=== PATIENT | female | born 1985 | race Caucasian/White ===

== ENCOUNTER → 2016-11-22 | Outpatient (CLI) | payer OTHER ==
[~2016-11-22] MED LIST: IBUP-103 PO
[2016-11-22 15:47] LABS: URINE APPEARANCE CLEAR (CLEAR); URINE BILIRUBIN NEG (NEG); URINE COLOR YELLOW; URINE NITRITE NEG (NEG); URINE PH 6.5 (4.5-7.5); URINE SPECIFIC GRAVITY 1.009 (1.000-1.030); UROBILINOGEN NEG (NEG)
[2016-11-22 15:54] LABS: MANUAL MICROSCOPIC REQUIRED? NO; REVIEW REQ? NO
== END | disposition home or self-care (01) ==
LOC: C.LAB 14:31
PROVIDERS: ATTEND Obstetrics & Gynecology
DX: R39.9 Unspecified symptoms and signs involving the genitourinary system (principal)

== ENCOUNTER 2017-08-12 10:03 | Emergency (ER) | payer OTHER ==
[~2017-08-12] VITALS: Ht 162.6 cm; Wt 82.5 kg
[2017-08-12 10:05] VITALS: TEMP 38.1; Ht 162.6 cm; Wt 82.5 kg
--- NOTE | 2017-08-12 10:54 | EMERGENCY ROOM VISIT NOTE ---
History First contact with patient: 10:19 Chief Complaint: FLU LIKE SX Stated Complaint: FLU LIKE SYMPTOMS History of Present Illness The patient is a 32 year old female who presents to the Emergency Room with complaints fever starting yesterday. She notes that yesterday she took her temperature and it was 100.8. This has been associated with muscles ache, joint ache, chills, sore throat, ear pressure, sinus pressure and dry cough She notes that her son was sick last week. She denies any chest pain, shortness of breath, runny nose, palpitations, nausea , vomiting, diarrhea or abdominal pain. She also denies any recent tick bites or rashes. Review of Systems CONSTITUTIONAL:has had chills No fever, sweats or night sweats. No recent infections. No weight loss or weight gain. NEUROLOGIC: No headaches, dizziness or syncopal episodes. HEENT: No hearing or visual changes. No sinus or nasal issues. No mouth sores, thrush or oral lesions. CARDIOVASCULAR: No chest pain or palpitations. RESPIRATORY: No SOB, dyspnea, has had cough GASTROINTESTINAL: No nausea, vomiting, diarrhea, constipation, reflux, melena or hematochezia. GENITOURINARY: No dysuria, frequency, urgency,or hematuria. MUSCULOSKELETAL: generalized muscle aches and pain SKIN: No rashes or skin lesions. No hair loss or nail changes. Past Medical/Surgical History Medical Problems: (1) 22 weeks gestation of (2) Acute right flank pain (3) Pyelonephritis complicating in second trimester Social History Smoking Status: Never Smoker Alcohol Use: occasionally Drug Use: none Housing Status: lives with family Current/Historical Medications No Active Prescriptions or Reported Meds Allergies NKDA Physical Exam Vital Signs Date Time Temp Pulse Resp B/P (MAP) Pulse Ox O2 Delivery O2 Flow Rate FiO2 08/12/17 11:33 88 14 110/72 97 Room Air 08/12/17 10:47 105 16 113/72 97 Room Air 08/12/17 10:05 38.1 106 18 120/75 97 Room Air Physical Exam HEENT: Head - normocephalic and atraumatic. Pupils are equal, round, and reactive to light. Extraocular eye muscles are intact and sclera are anicteric. Ears - bilaterally patent canals with noninjected tympanic membranes and no evidence of hemotympanum. Nose - moist nasal mucosa without discharge. Mouth - moist buccal mucosa. Oropharynx is erythematous but there is no tonsillar exudate or edema noted. Neck: Supple; no JVD, nuchal rigidity, mild submandibular lymphadenopathy Heart: Regular rate and rhythm. There is a normal S1 and S2 with no murmurs, clicks, or gallops appreciated. Lungs: Clear to auscultation bilaterally with no wheezes, rales, or rhonchi. Abdomen: Soft, completely nontender, nondistended, with good bowel sounds. There are no palpable pulsatile masses or hepatosplenomegaly. There is no guarding, rigidity, or rebound noted. Extremities: No evidence of cyanosis, clubbing, or edema. There are easily palpable peripheral pulses. Medical Decision & Procedures Laboratory Results Test 08/12/17 10:47 Influenza Type A (RT-PCR) Neg for Influ A (NEG) Influenza Type B (RT-PCR) Neg for Influ B (NEG) ED Course 1010- patient was seen by myself and a full history and examination were performed 1030 - i discussed the case with Dr. Kan and I ordered rapid flu, rapid strep and a CXR 1150 - the results of the testing returned as normal and the patient was comfortable and in no acute distress 1155 - continued management was discussed with the patient and she was agreeable to following up with her PCP Medical Decision Differential diagnosis: Etiologies such as viral syndrome, tonsillitis, streptococcal pharyngitis, mononucleosis, peritonsillar abscess, retropharyngeal abscess, otitis, pneumonia , influenza, as well as others were entertained. Patient had a rapid flu, rapid strep and CXR which all returned as normal. The patient is likely to be suffering from a viral URI. Impression Primary Impression: Upper respiratory infection Departure Information Dispostion Home / Self-Care Condition GOOD Prescriptions No Active Prescriptions or Reported Meds Referrals Mel Barrios D.O. (PCP) Patient Instructions My [facility] Additional Instructions We tested you for strep throat and for the flu. Both of these results were normal. We also did a CXR which was normal. Please follow up with your PCP in the next 2-3 days. If you have any shortness of breath, chest pain, or vomiting then please come back to the emergency department Problem Qualifiers Primary Impression: Upper respiratory infection URI type: unspecified viral URI Qualified Codes: J06.9 - Acute upper respiratory infection, unspecified
--- NOTE | 2017-08-12 11:27 | DIAGNOSTIC IMAGING REPORT ---
CHEST 2 VIEWS ROUTINE CLINICAL HISTORY: Cough FLULIKE SYMPTOMS COMPARISON STUDY: 07/06/2016 FINDINGS: The cardiac and mediastinal contours are normal. There is no evidence of focal pulmonary consolidation. There is no evidence of failure. No pleural effusions are visualized.[ There is a mild scoliosis. IMPRESSION: No active disease in the chest. Electronically signed by: Christoph Jaquez M.D. 08/12/2017 11:26 AM Dictated Date/Time: 08/12/2017 11:25 AM
[2017-08-12 11:45] LABS: INFLUENZA A PCR Neg for Influ A (NEG); INFLUENZA B PCR Neg for Influ B (NEG)
[2017-08-12 12:31] VITALS: BP 112/78; PULSE 91; O2SAT 99
--- NOTE | 2017-08-12 13:59 | EMERGENCY ROOM VISIT NOTE ---
History Report prepared by Pat: Joseph Quiroz Under the Supervision of: Dr. Christophe Kan D.O. First contact with patient: 10:19 Chief Complaint: FLU LIKE SX Stated Complaint: FLU LIKE SYMPTOMS History of Present Illness The patient is a 32 year old female who presents to the Emergency Room with complaints of constant flu like symptoms beginning a few days ago. The patient states her symptoms began with a cough a few days ago. She reports she developed an achy feeling and sorethroat yesterday morning. The patient notes last evening she developed a headache. She states this morning her symptoms worsened when her headache continued, and she developed a fever and left ear pressure. The patient reports her son was sick with a fever and URI symptoms. She notes she is currently on her menstrual period. The patient states she can swallow but it is sore. She denies abdominal pain, nausea, vomiting, diarrhea. Source of History: patient Onset: a few days ago Position: other (global) Quality: other (flu like symptoms) Timing: constant Associated Symptoms: + fevers, + headache (last evening), + sorethroat ( yesterday morning), + cough (few days ago), No nausea, No vomiting, No abdominal pain, No diarrhea Note: Associated symptoms: achy feeling, left ear pressure Review of Systems See HPI for pertinent positives & negatives. A total of 10 systems reviewed and were otherwise negative. Past Medical & Surgical Medical Problems: (1) 22 weeks gestation of (2) Acute right flank pain (3) Pyelonephritis complicating in second trimester Family History Cancer Diabetes mellitus Hypertension Kidney disease Kidney stones Social History Smoking Status: Never Smoker Smokeless Tobacco Use: No Alcohol Use: none Marital Status: Housing Status: lives with family Occupation Status: employed Current/Historical Medications No Active Prescriptions or Reported Meds Allergies Coded Allergies: No Known Allergies (Unverified , 08/12/17) Physical Exam Vital Signs Date Time Temp Pulse Resp B/P (MAP) Pulse Ox O2 Delivery O2 Flow Rate FiO2 08/12/17 12:31 91 18 112/78 99 08/12/17 11:33 88 14 110/72 97 Room Air 08/12/17 10:47 105 16 113/72 97 Room Air 08/12/17 10:05 38.1 106 18 120/75 97 Room Air Physical Exam GENERAL: Sitting up in bed, alert, dry non-productive cough, no distress, non- toxic EYE EXAM: normal conjunctiva. OROPHARYNX: no exudate, no erythema, lips, buccal mucosa, and tongue normal and mucous membranes are moist NECK: supple, no nuchal rigidity, no adenopathy, non-tender LUNGS: Clear to auscultation. Normal chest wall mechanics HEART: no murmurs, S1 normal and S2 normal ABDOMEN: abdomen soft, non-tender, normo-active bowel sounds, no masses, no rebound or guarding. BACK: Back is symmetrical on inspection and there is no deformity, no midline tenderness, no CVA tenderness. SKIN: no rashes and no bruising UPPER EXTREMITIES: upper extremities are grossly normal. LOWER EXTREMITIES: No pitting edema. Calves are equal bilaterally. NEURO EXAM: Normal sensorium, cranial nerves II-XII grossly intact, normal speech, no gross weakness of arms, no gross weakness of legs. Medical Decision & Procedures ER Provider Diagnostic Interpretation: Radiology results as stated below per my review and the radiologist's interpretation: CHEST 2 VIEWS ROUTINE CLINICAL HISTORY: Cough FLULIKE SYMPTOMS COMPARISON STUDY: 07/06/2016 FINDINGS: The cardiac and mediastinal contours are normal. There is no evidence of focal pulmonary consolidation. There is no evidence of failure. No pleural effusions are visualized.[ There is a mild scoliosis. IMPRESSION: No active disease in the chest. Electronically signed by: Christoph Jaquez M.D. 08/12/2017 11:26 AM Dictated Date/Time: 08/12/2017 11:25 AM Laboratory Results Test 08/12/17 10:47 Influenza Type A (RT-PCR) Neg for Influ A (NEG) Influenza Type B (RT-PCR) Neg for Influ B (NEG) Laboratory results per my review. ED Course ED COURSE: Vital signs were reviewed and showed normal vitals. The patients medical record was reviewed The above diagnostic studies were performed and reviewed. ED treatments and interventions as stated above. 1023: The patient was evaluated in room C04 by the resident under my supervision. A complete history and physical examination was performed. 1055: The patient was evaluated in room C04 by me. A complete history and physical examination was performed. 1208: Upon reevaluation, the patient is resting comfortably. I discussed my findings with the patient and she understands and agrees with the treatment plan. Based on the patients age, coexisting illnesses, exam and lab findings the decision to treat as an outpatient was made. The patient remained stable while under my care. The patient appeared well at the time of discharge. Medical Decision Differential diagnoses includes but is not limited to pneumonia, bronchitis, COPD/Asthma exacerbation, pneumothorax, pulmonary embolism, congestive heart failure, acute coronary syndrome. Patient is a 32-year-old female who presents to ER for sore throat, dry cough, and achy since yesterday. Son has been sick with same symptoms. No nuchal rigidity. No signs meningitis or encephalitis. Influenza and rapid strep were negative. Chest x-ray unremarkable. Patient was updated bedside. She is discharged follow-up with PCP as an outpatient as she likely has a viral URI. Discussed with Pt concerning signs and symptoms to watch out for. Pt was instructed to follow up with their PCP and discussed with the patient their option to return to the ED at anytime for persistent or worsening symptoms. The appropriate anticipatory guidance and out-patient management, including indications for return to the emergency department, were explained at length to the patient and understood. Medication Reconcilliation Current Medication List: was personally reviewed by me Blood Pressure Screening Patient's blood pressure: Normal blood pressure Blood pressure disposition: Did not require urgent referral Impression Primary Impression: Upper respiratory infection Scribe Attestation The scribe's documentation has been prepared under my direction and personally reviewed by me in its entirety. I confirm that the note above accurately reflects all work, treatment, procedures, and medical decision making performed by me. Departure Information Dispostion Home / Self-Care Prescriptions No Active Prescriptions or Reported Meds Referrals Mel Barrios D.O. (PCP) Forms HOME CARE DOCUMENTATION FORM, IMPORTANT VISIT INFORMATION Patient Instructions My [facility] Additional Instructions We tested you for strep throat and for the flu. Both of these results were normal. We also did a CXR which was normal. Please follow up with your PCP in the next 2-3 days. If you have any shortness of breath, chest pain, or vomiting then please come back to the emergency department Problem Qualifiers Primary Impression: Upper respiratory infection URI type: unspecified viral URI Qualified Codes: J06.9 - Acute upper respiratory infection, unspecified
== END 2017-08-12 12:23 | disposition home or self-care (01) ==
LOC: C.EDB 10:05 → C.EDC 12:23
DX: J06.9 Acute upper respiratory infection, unspecified (principal)

== ENCOUNTER → 2017-10-24 | Outpatient (CLI) | payer OTHER | END | disposition home or self-care (01) | LOC: C.LABSPEC 11:05 | PROVIDERS: ATTEND Obstetrics & Gynecology | DX: Z34.81 Encounter for supervision of other normal pregnancy, first trimester (principal) ==

== ENCOUNTER → 2017-10-31 | Outpatient (CLI) | payer OTHER | END | disposition home or self-care (01) | LOC: C.LABSPEC 10:55 | PROVIDERS: ATTEND Obstetrics & Gynecology | DX: Z34.81 Encounter for supervision of other normal pregnancy, first trimester (principal) ==

== ENCOUNTER → 2017-10-31 | Outpatient (CLI) | payer OTHER | END | disposition home or self-care (01) | LOC: C.PAPS 11:35 | PROVIDERS: ATTEND Obstetrics & Gynecology | DX: Z12.4 Encounter for screening for malignant neoplasm of cervix (principal); R87.610 Atypical squamous cells of undetermined significance on cytologic smear of cervix (ASC-US) ==

== ENCOUNTER → 2017-10-31 | Outpatient (CLI) | payer OTHER ==
[2017-10-31 14:43] LABS: BASO % 0.2 %; BASO ABS # 0.02 K/uL (0-0.2); EOS % 1.3 %; EOS ABS # 0.12 K/uL (0-0.5); HEMATOCRIT 41.6 % (37-47); HEMOGLOBIN 14.6 g/dL (12.0-16.0); IG# 0.01 K/uL (0.00-0.02); LYMPH % 22.2 %; LYMPH ABS # 2.03 K/uL (1.2-3.4); MEAN CORPUSCULAR HEMOGLOBIN 31.6 pg (25-34); MEAN CORPUSCULAR HGB CONC 35.1 g/dl (32-36); MEAN PLATELET VOLUME 10.7 fL (7.4-10.4); MONO % 6.2 %; MONO ABS # 0.57 K/uL (0.11-0.59); PLATELET COUNT 245 K/uL (130-400); RED CELL DISTRIBUTION WIDTH CV 12.8 % (11.5-14.5); WHITE BLOOD COUNT 9.15 K/uL (4.8-10.8)
== END | disposition home or self-care (01) ==
LOC: C.LAB 13:30
PROVIDERS: ATTEND Obstetrics & Gynecology
DX: Z34.81 Encounter for supervision of other normal pregnancy, first trimester (principal)

== ENCOUNTER → 2017-12-14 | Outpatient (CLI) | payer OTHER ==
[~2017-12-14] MED LIST changes: -IBUP-103 PO; +ONDA4TAB10 SL; +PRENTAB26 PO
== END | disposition home or self-care (01) ==
LOC: C.LAB 08:05
PROVIDERS: ATTEND Family Medicine Adult Medicine
DX: Z00.00 Encounter for general adult medical examination without abnormal findings (principal); L80 Vitiligo

== ENCOUNTER 2017-12-15 06:17 | Emergency (ER) | payer OTHER ==
[~2017-12-15] VITALS: Ht 162.6 cm; Wt 77.0 kg
[2017-12-15 06:20] VITALS: TEMP 36.7; O2SAT 99; Ht 162.6 cm; Wt 77.0 kg
[2017-12-15] MEDS ORDERED: DiphenhydrAMINE HCL 50 MG/ML VIAL IV STA (06:30)
[2017-12-15] MEDS ORDERED: METOCLOPRAMIDE HCL INJ 5 MG/ML 2 ML VIAL IV STA (06:30)
[2017-12-15] MEDS ORDERED: SODIUM CHLORIDE 0.9% 1000ML 1,000 ML IV STA (06:30)
[2017-12-15] MEDS ORDERED: PRENTAB26 PO (06:38)
--- NOTE | 2017-12-15 06:40 | EMERGENCY ROOM VISIT NOTE ---
History First contact with patient: 06:24 Chief Complaint: DIZZY Stated Complaint: DIZZY,LIGHT HEADED,14 WEEKS PREG Nursing Triage Summary: Pt states upon waking this morning she felt hot, turned fan on and felt better. Pt states she has Hx of hypoglycemia, drank orange juice, vomited x1 but felt better. Upon arriving to work pt states she felt dizzy and lightheaded, coworker states "she looked like she was going to pass out". Pt denies LOC. Pt states she currently feels better while lying down. History of Present Illness The patient is a 32 year old female who presents to the Emergency Room with complaints of dizziness. The patient is 14 weeks . The patient states that she had vomited once earlier this morning. When she arrived at work, she felt dizzy and her colleagues felt she looked like she might pass out. She was brought to the ED. Upon arrival, she began vomiting. The patient has no complaints of pain. There has been no fever, no chills. No diarrhea. She states she is recovering from a cold, basically a stuffy nose and mild cough. There have been no urinary complaints. No vaginal bleeding or discharge. The has been healthy thus far, she has had some nausea and vomiting in the first trimester. The patient denies any sick contacts, no food eaten that she feels may have been an issue. She feels better now since throwing up. Patient denies any chest pain or shortness of breath, no palpitations. Source of History: patient Onset: this morning Position: other (global) Quality: other (dizzy) Timing: other (sudden) Associated Symptoms: + cough (mild), + vomiting, No fevers, No chills, No chest pain, No SOB, No diarrhea, No urinary symptoms Note: The patient complains of a stuffy nose. The patient denies complaints of pain, vaginal bleeding, vaginal discharge, heart palpitations, contact with anyone who is sick, and eating any food that may have been an issue. Review of Systems ROS: Please see HPI. At least 10 systems in total were reviewed and otherwise negative. Past Medical/Surgical History Medical Problems: (1) 22 weeks gestation of (2) Acute right flank pain (3) Pyelonephritis complicating in second trimester Family History Cancer Diabetes mellitus Hypertension Kidney disease Kidney stones Social History Smoking Status: Never Smoker Alcohol Use: none Drug Use: none Marital Status: Housing Status: lives with family Occupation Status: employed Current/Historical Medications Scheduled Multivit/Min/Iron/Fol Ac/Pren ( Vitamin), 1 TAB PO HS Ondasetron Odt (Zofran Odt), 4 MG SL Q6H Physical Exam Vital Signs Date Time Temp Pulse Resp B/P (MAP) Pulse Ox O2 Delivery O2 Flow Rate FiO2 12/15/17 08:15 74 16 99/77 12/15/17 06:36 83 12/15/17 06:36 76 18 120/83 Room Air 12/15/17 06:20 36.7 76 18 106/75 99 Room Air Physical Exam GENERAL: Patient is actively vomiting in the bathroom. HEENT: No acute trauma, normocephalic atraumatic, mucous membranes moist, no nasal congestion, no scleral icterus. NECK: No stridor, no adenopathy, no meningismus, trachea is midline. LUNGS: Clear to auscultation bilaterally, no wheeze, no rhonchi, breath sounds equal. HEART: Without murmurs gallops or rubs, regular rate and rhythm. ABDOMEN: Soft, nontender, bowel sounds positive, no hernias, no peritonitis. Gravid uterus EXTREMITIES: No cyanosis or edema, full range of motion of all the joints without pain or difficulty, no signs for acute trauma. NEUROLOGIC: Oriented x 3, no acute motor or sensory deficits, no focal weakness. SKIN: No rash, no jaundice, no diaphoresis. Medical Decision & Procedures Laboratory Results 12/15/17 07:12 Red Blood Count 4.10, Mean Corpuscular Volume 89.0, Mean Corpuscular Hemoglobin 31.2, Mean Corpuscular Hemoglobin Concent 35.1, Mean Platelet Volume 10.2, Neutrophils (%) (Auto) 67.9, Lymphocytes (%) (Auto) 20.3, Monocytes (%) (Auto) 10.2, Eosinophils (%) (Auto) 1.2, Basophils (%) (Auto) 0.3, Neutrophils # (Auto ) 4.72, Lymphocytes # (Auto) 1.41, Monocytes # (Auto) 0.71, Eosinophils # (Auto ) 0.08, Basophils # (Auto) 0.02 12/15/17 07:12 Test 12/15/17 07:12 12/15/17 08:05 White Blood Count 6.95 K/uL (4.8-10.8) Red Blood Count 4.10 M/uL (4.2-5.4) Hemoglobin 12.8 g/dL (12.0-16.0) Hematocrit 36.5 % (37-47) Mean Corpuscular Volume 89.0 fL (80-100) Mean Corpuscular Hemoglobin 31.2 pg (25-34) Mean Corpuscular Hemoglobin Concent 35.1 g/dl (32-36) Platelet Count 178 K/uL (130-400) Mean Platelet Volume 10.2 fL (7.4-10.4) Neutrophils (%) (Auto) 67.9 % Lymphocytes (%) (Auto) 20.3 % Monocytes (%) (Auto) 10.2 % Eosinophils (%) (Auto) 1.2 % Basophils (%) (Auto) 0.3 % Neutrophils # (Auto) 4.72 K/uL (1.4-6.5) Lymphocytes # (Auto) 1.41 K/uL (1.2-3.4) Monocytes # (Auto) 0.71 K/uL (0.11-0.59) Eosinophils # (Auto) 0.08 K/uL (0-0.5) Basophils # (Auto) 0.02 K/uL (0-0.2) RDW Standard Deviation 40.3 fL (36.4-46.3) RDW Coefficient of Variation 12.5 % (11.5-14.5) Immature Granulocyte % (Auto) 0.1 % Immature Granulocyte # (Auto) 0.01 K/uL (0.00-0.02) Anion Gap 7.0 mmol/L (3-11) Est Creatinine Clear Calc Drug Dose 155.9 ml/min Estimated GFR () 147.7 Estimated GFR (Non- 127.4 BUN/Creatinine Ratio 10.3 (10-20) Calcium Level 8.3 mg/dl (8.5-10.1) Total Bilirubin 0.3 mg/dl (0.2-1) Aspartate Amino Transf (AST/SGOT) 12 U/L (15-37) Alanine Aminotransferase (ALT/SGPT) 16 U/L (12-78) Alkaline Phosphatase 51 U/L (45-117) Total Protein 6.8 gm/dl (6.4-8.2) Albumin 3.3 gm/dl (3.4-5.0) Globulin 3.5 gm/dl (2.5-4.0) Albumin/Globulin Ratio 0.9 (0.9-2) Urine Color YELLOW Urine Appearance CLEAR (CLEAR) Urine pH 7.0 (4.5-7.5) Urine Specific [place] 1.016 (1.000-1.030) Urine Protein NEG (NEG) Urine Glucose (UA) NEG (NEG) Urine Ketones 1+ (NEG) Urine Occult Blood NEG (NEG) Urine Nitrite NEG (NEG) Urine Bilirubin NEG (NEG) Urine Urobilinogen NEG (NEG) Urine Leukocyte Esterase NEG (NEG) Laboratory results reviewed by me. Medications Administered Medications (Trade) Dose Ordered Sig/Landon Route Start Time Stop Time Status Last Admin Dose Admin Sodium Chloride 1,000 ml @ 999 mls/hr Q1H1M STAT IV 12/15/17 06:30 12/15/17 07:30 DC 12/15/17 06:50 999 MLS/HR Metoclopramide HCl (Reglan Inj) 5 mg NOW STAT IV 12/15/17 06:30 12/15/17 06:34 DC 12/15/17 06:50 5 MG Diphenhydramine HCl (Benadryl Inj) 25 mg NOW STAT IV 12/15/17 06:30 12/15/17 06:34 DC 12/15/17 06:50 25 MG ED Course 0624: The patient was evaluated in room A2. A complete history and physical exam was performed. 0630: Ordered Benadryl Inj 25 mg IV, Reglan Inj 5 mg IV, NSS 1000 ml @ 999 mls/ hr IV. 0824: The patient's urine has come back. The results are as follows: small ketones, no signs of infection, and no hematuria. 0825: I reevaluated the patient and she is feeling better. Discussed results and discharge instructions: She verbalized understanding and agreement. The patient is ready for discharge. Medical Decision Differential diagnosis includes foodborne illness, viral illness, dehydration, UTI, electrolyte imbalance, anemia, vomiting in . There is no leukocytosis or worrisome anemia. No significant electrolyte abnormality, kidney failure, hepatitis. Urinalysis shows some evidence for mild dehydration, no infection or hematuria. The patient was not febrile, she was not toxic. She has not had pain, no vaginal bleeding or discharge. Patient received IV saline, IV Reglan and IV Benadryl. She feels improved. She still feels slightly dizzy at times but definitely better than when she first arrived. This illness is possibly viral, possibly related to the itself. The patient does seem stable and will be discharged with some Zofran to use for nausea if required. Hydration, rest were encouraged. If worsening, she can return. Medication Reconcilliation Current Medication List: was personally reviewed by me Blood Pressure Screening Patient's blood pressure: Normal blood pressure Blood pressure disposition: Did not require urgent referral Impression Primary Impression: Dizziness Additional Impressions: Vomiting Departure Information Dispostion Home / Self-Care Prescriptions Ondasetron Odt (ZOFRAN ODT) 4 Mg Tab 4 MG SL Q6H for Nausea, #10 TAB Prov: Oh Collier M.D. 12/15/17 Referrals Mel Anne M.D. (PCP) Forms HOME CARE DOCUMENTATION FORM, IMPORTANT VISIT INFORMATION Patient Instructions My [facility] Additional Instructions stay well hydrated rest zofran 1 tab every 6 hours if needed for nausea/vomiting follow up with ob next week return for worsening symptoms or vaginal bleeding lab testing today was all ok Problem Qualifiers
[2017-12-15 07:30] LABS: BASO % 0.3 %; BASO ABS # 0.02 K/uL (0-0.2); EOS % 1.2 %; EOS ABS # 0.08 K/uL (0-0.5); HEMATOCRIT 36.5 % (37-47); HEMOGLOBIN 12.8 g/dL (12.0-16.0); IG# 0.01 K/uL (0.00-0.02); LYMPH % 20.3 %; LYMPH ABS # 1.41 K/uL (1.2-3.4); MEAN CORPUSCULAR HEMOGLOBIN 31.2 pg (25-34); MEAN CORPUSCULAR HGB CONC 35.1 g/dl (32-36); MEAN PLATELET VOLUME 10.2 fL (7.4-10.4); MONO % 10.2 %; MONO ABS # 0.71 K/uL (0.11-0.59); NEUT % 67.9 %; NEUT ABS # 4.72 K/uL (1.4-6.5); PLATELET COUNT 178 K/uL (130-400); RED CELL DISTRIBUTION WIDTH CV 12.5 % (11.5-14.5); RED CELL DISTRIBUTION WIDTH SD 40.3 fL (36.4-46.3); WHITE BLOOD COUNT 6.95 K/uL (4.8-10.8)
[2017-12-15 07:47] LABS: ALBUMIN 3.3 gm/dl (3.4-5.0); CALCIUM 8.3 mg/dl (8.5-10.1); CREATININE 0.53 mg/dl (0.60-1.20); POTASSIUM 3.3 mmol/L (3.5-5.1)
[2017-12-15 07:51] LABS: TOTAL PROTEIN 6.8 gm/dl (6.4-8.2)
[2017-12-15 08:15] VITALS: BP 99/77; PULSE 74
[2017-12-15] MEDS ORDERED: ONDA4TAB10 SL (08:30)
== END 2017-12-15 08:40 | disposition home or self-care (01) ==
LOC: C.EDB 06:18 → C.EDA 08:40
DX: R42 Dizziness and giddiness (principal); R11.10 Vomiting, unspecified; Z34.90 Encounter for supervision of normal pregnancy, unspecified, unspecified trimester

== ENCOUNTER → 2017-12-27 | Outpatient (CLI) | payer OTHER | END | disposition home or self-care (01) | LOC: C.LAB 16:37 | PROVIDERS: ATTEND Obstetrics & Gynecology | DX: Z34.82 Encounter for supervision of other normal pregnancy, second trimester (principal) ==

== ENCOUNTER → 2018-03-20 | Outpatient (CLI) | payer OTHER ==
[2018-03-20 09:36] LABS: HEMATOCRIT 39.3 % (37-47); HEMOGLOBIN 13.4 g/dL (12.0-16.0)
== END | disposition home or self-care (01) ==
LOC: C.LAB 07:13
PROVIDERS: ATTEND Obstetrics & Gynecology
DX: Z34.83 Encounter for supervision of other normal pregnancy, third trimester (principal); O28.1 Abnormal biochemical finding on antenatal screening of mother